=== PATIENT | female | born 1955 | race Caucasian/White ===

== ENCOUNTER 2022-03-23 12:49 | Emergency (ER) | payer BC, MEDICAID ==
[2022-03-23] MEDS ORDERED: HYDROmorphone 1 MG/ML Syringe IVPUSH ONE (13:49)
== END 2022-03-23 15:52 | disposition home or self-care (01) ==
LOC: JD.ED 12:49
DX: S52.572A Other intraarticular fracture of lower end of left radius, initial encounter for closed fracture (principal); I10 Essential (primary) hypertension; E11.9 Type 2 diabetes mellitus without complications; Z88.8 Allergy status to other drugs, medicaments and biological substances; W00.0XXA Fall on same level due to ice and snow, initial encounter
CPT/HCPCS: 29125; 36415; 73110; 80053; 85025; 96374; 99283; J1170